=== PATIENT | female | born 1945 | race Caucasian/White ===

== ENCOUNTER 2024-05-01 10:34 | Inpatient (IN) | payer OTHER, MEDICARE ==
[2024-05-01] MEDS ORDERED: ACETAMINOPHEN 325 MG TABLET PO PRN (18:20)
[2024-05-01] MEDS ORDERED: ACETAMINOPHEN 500 MG TAB PO PRN (18:39)
[2024-05-01] MEDS ORDERED: DOCUSATE NA/SENNA CONC 1 TAB PO PRN (18:39)
[2024-05-01] MEDS ORDERED: BISACODYL E.C. 5 MG TAB PO PRN (18:39)
[2024-05-01] MEDS: TRAMADOL HCL 50 MG TAB PO PRN (20:27)
[2024-05-01] MEDS: MELATONIN 3 MG TABLET PO PRN (20:29)
[2024-05-01] MEDS: PRIMIDONE 250 MG TAB PO SCH (20:29)
[2024-05-01] MEDS: NEBIVOLOL HCL 5 MG TAB PO SCH (20:29)
[2024-05-01] MEDS: hydroCHLOROthiazide 25 MG TAB PO SCH (20:30)
[2024-05-01] MEDS: LOSARTAN POTASSIUM 50 MG TABLET PO SCH (20:31)
[2024-05-01] MEDS: MEMANTINE HCL 10 MG TABLET PO SCH (20:31)
[2024-05-01] MEDS: ONDANSETRON 4 MG (ODT) TAB PO PRN (23:24)
[2024-05-01 23:53] LABS: Renal Epithelial <5 /HPF (None Seen); Specific Gravity 1.009 (1.005-1.030); Sqamous Epithelial None Seen /HPF (None Seen); Urine Bacteria None Seen /HPF (<20); Urine Bilirubin NEGATIVE (Negative); Urine Blood Negative (Negative); Urine Clarity Clear (Clear); Urine Color Colorless (Yellow); Urine Culture Reflex Order NOT NEEDED; Urine Glucose NEGATIVE (Negative); Urine Ketones NEGATIVE (Negative); Urine Micro Reflex YN NO BILL MICROSCOPIC; Urine Nitrite NEGATIVE (Negative); Urine Protein NEGATIVE (Negative); Urine RBC <5 /HPF (None Seen); Urine Urobilinogen Normal (Normal); Urine WBC <5 /HPF (<5)
[2024-05-02] MEDS: BISACODYL 10 MG RECTAL SUPP PR PRN (04:11)
[2024-05-02] MEDS: PANTOPRAZOLE 40MG TABLET PO SCH (07:10)
[2024-05-02] MEDS: NIFEDIPINE XL 30 MG TABLET PO SCH (07:13)
[2024-05-02] MEDS ORDERED: APIXABAN 2.5 MG TABLET PO SCH (08:00)
[2024-05-02] MEDS ORDERED: LOSARTAN POTASSIUM 50 MG TABLET PO SCH (08:00)
[2024-05-02] MEDS ORDERED: hydroCHLOROthiazide 25 MG TAB PO SCH (08:00)
[2024-05-02] MEDS ORDERED: NIFEDIPINE XL 30 MG TABLET PO SCH (08:00)
[2024-05-02] MEDS ORDERED: NEBIVOLOL HCL 5 MG TAB PO SCH (08:00)
[2024-05-02 08:11] LABS: Absolute Basophils 0.1 K/uL (0-0.5); Absolute Eosinophils 0.1 K/uL (0-0.5); Absolute Lymphocytes (CBC) 0.9 K/uL (0.7-4.9); Absolute Neutrophil 5.6 K/uL (1.8-8.0); Basophils % 0.8 % (0-1.3); Eosinophils % 1.2 % (0-4.4); Hematocrit 38.8 % (36.0-45.0); Hemoglobin 13.1 g/dL (12.0-15.0); Lymphocytes % 12.1 % (15.3-44.8); MCH 30.5 pg (27.0-35.0); MCHC 33.8 g/dL (32.0-36.0); MPV 8.3 fL (7.6-11.3); Monocytes % 12.8 % (3.3-12.3); Neutrophils % 73.1 % (41.7-73.7); Nucleated Red Blood Cells % 0.1 % (0-0); Platelets 293 thou/uL (152-406); RBC Red Blood Cell Count 4.31 M/uL (3.86-4.86); Red Cell Distribution Width 14.4 % (12.1-15.2)
[2024-05-02 08:27] LABS: Albumin 2.8 g/dL (3.4-5.0); Anion Gap 8.8 mEq/L (5.0-15.0); Magnesium 2.1 mg/dL (1.6-2.4); Potassium 3.8 mEq/L (3.5-5.1); Prealbumin 17.3 mg/dL (20-40)
[2024-05-02] MEDS: ASPIRIN 81 MG CHEWABLE TABLET PO SCH (08:50)
[2024-05-02] MEDS: TAMSULOSIN 0.4 MG SR CAP PO SCH (08:51)
[2024-05-02] MEDS: APIXABAN 2.5 MG TABLET PO SCH (08:51)
[2024-05-02] MEDS: ANASTROZOLE 1 MG TAB PO SCH (10:07)
[2024-05-02] MEDS: HYDROCODONE/APAP 5/325 MG TAB PO PRN (10:12)
[2024-05-02] MEDS: GABAPENTIN 100 MG CAP PO SCH (20:30)
--- NOTE | 2024-05-02 21:42 | HP ---
Date of Admission: 05/01/2024 Time Of Service: 1 p.m. Chief Complaint: "I had lots of back pain and mass on my spinal cord." History Of Present Illness: Ms. Lopez is a 79-year-old patient with history of breast cancer, st atus post treatment at [facility], essential tremor, hypertension, who came to the emergency room at [facility] with severe worsening back pain. She had been managing the pain at home with medications, but over several days, pain became unbearable. CT scan of the back showed a lytic lesion at T10, it is e xpanding into the spinal canal, likely compressing the spinal cord. She was managed with hydrocodone and instructed to follow up with her oncologist. She was later seen at [facility] for intractab le pain. Again, the imaging showed neoplastic involvement of T10, likely reflecting metastatic poten tial breast cancer to that region. The study also identified extension posteriorly, but there was no high-grade central spinal stenosis or neural foraminal narrowing. There was a pathologic fracture p resent along the posterior third of the vertebral body, but no significant loss of height. She was t ransferred for neurosurgical higher level of care at [facility]. She, however, at [facility] had initially denied issues of bowel and bladder incontinence, but subsequently had loss of s ensation in the perineal area and difficulty maintaining bowel and bladder control. A Lopez catheter was in place and then since remained so. Pain as noted goes up to 10/10 and she had received morphi ne along with [place]. Neurosurgery saw the patient and felt that surgical intervention was not recomm ended. They recommended the patient followup with her oncologist, Dr. Oliveros, and possibly may have CT -guided biopsy. She did have that biopsy on 04/28 and the results are pending. She was placed on Fl omax for urinary retention. The patient did say that when she was unable to urinate, a straight cath eter would find a full bladder, but she did not have a sensation that she was needing to go. She did continue primidone for her comorbid essential tremor and been put on Flomax again for the urinary re tention. For cognitive impairment, she was on memantine. Hypertension, her hydrochlorothiazide, los marilyn, and Bystolic were continued. As a result of her severe decline in ordinary mobility transfers due to severe pain, she required minimum assist for bed mobilization transfers, ambulation just a fe w feet around 3 feet, and required significant help to get to the edge of the bed. She was therefore felt to be an appropriate candidate for aggressive inpatient rehabilitation where she can have her p ain medications adjusted. She can have bowel and bladder training and we will consider evaluation fo r of course urinary tract infection and antibiotics. Now she is therefore admitted to the inpatient rehabilitation unit for physical, occupational, and if need be speech therapy. Past Medical History: Breast cancer with treatment with anastrozole, hypertension, benign essential tremor, urinary retention, severe spinal pain. Allergies: PIROXICAM AND SULFAMETHOXAZOLE. Medications: Tylenol Extra Strength 500 mg every 4 hours, [place] 5/325 every 6 hours, Maalox 30 mg ev niyah 6 hours as needed, anastrozole 1 mg daily, Eliquis 2.5 mg twice daily for DVT prophylaxis, aspiri n 81 mg daily, Dulcolax 10 mg per rectum as needed for constipation, gabapentin 100 mg twice daily, H ydroDIURIL 12.5 mg twice daily, losartan 100 mg daily, melatonin 3 mg at bedtime, Namenda 10 mg twice daily, Bystolic 10 mg at bedtime, Procardia XL 30 mg daily, Zofran 4 mg every 8 hours as needed for nausea, Protonix 40 mg daily, primidone 250 mg twice daily, Senokot-S 2 at bedtime, Flomax 0.4 mg luly ly, tramadol 50 mg every 6 hours as needed. Laboratory Studies: Complete blood count differential is normal except for slightly low lymphocytes at 12.1 and monocytes slightly elevated to 12.8. Her chemistries; sodium 134, potassium 3.8, chlorid e 101, carbon dioxide 28, BUN 30, creatinine 0.96, prealbumin 17.3, albumin 2.8, magnesium 2.1, calci um 9.4, glucose 133. Her urinalysis is completely normal. X-ray/imaging: MRI of the L-spine shows a mass lesion in the vertebral body of T10 involving the lef t pedicle with epidural extension and mild compression fracture. No surgical intervention required b y the surgery. Family History: Noncontributory. Social History: The patient lives with family. Denies alcohol, tobacco, or IV drug use. Review of Systems: She does have marked pain in the back which is mitigated by multiple modalities including the neuromo dulator, the [place], the tramadol and Tylenol. If need be, muscle spasms may be added. It should be noted that her ex- was still very involved with her, was at the bedside and had many questions asked and answered. Current Level Of Functioning: For eating, setup assistance. Oral hygiene, supervision. Toileting, moderate assistance. Showering, maximum assistance. Upper body dressing, moderate assistance. Lowe r body dressing, maximum assistance. Donning and doffing footwear, maximum assistance. Rolling left -to-right and qtrxx-pw-jekl and going from a kxx-ct-xwbed position, moderate assistance. Moderate as sistance for sitting and sliding on bed. For transfer from bed to chair to wheelchair, moderate assi stance required. Toilet transfers, moderate assistance. Gait, moderate assistance to ambulate 3 fee t with a rolling walker. Physical Examination: Vital Signs: Blood pressure 112/65, pulse 68, respiratory rate 16, temperature 97.2, oxygen saturati on 91% to 94% on room air. General: Ms. Lopez again is lying in bed, currently mild to moderate pain, which is improving af ter pain medications. HEENT: She does appear normocephalic, atraumatic. Sclerae are anicteric. Oropharynx moist. Neck: Supple. Chest: Clear. Heart: Regular. Extremities: Show no significant clubbing, cyanosis, or edema. Neuro: In terms of her neurological examination, no cranial nerve deficits. Upper extremity, no mot or deficits. She does have some significant pain in the back, where she has the lytic lesion at T10 vertebrae. She is able to move the legs equally well, at least 4/5 strength proximally and distally. No significant sensory loss. No sensory level identified. There are symmetric reflexes seen. Rehab And Medical Assessment And Plan: Ms. Lopez is a 79-year-old patient, admitted to the [facility] rehabilitation unit with impairment category 05, spinal cord dysfunction, nontraumatic. Her [facility] group code is 04.130, other, nontraumatic spinal cord dysfunction. Her etiologic diagnosis i s a lytic lesion at T10 extending into the spinal canal. Her additional comorbidities are the breast cancer, constipation, decreased mobility, decreased physical functioning, hyponatremia, pain, urinar y retention, essential hypertension. She also has benign essential tremor. Plan: 1.She will have physical, occupational, and speech therapy for 3.5 hours, 5 of 7 days. 2.Continue with management of her hypertension with Bystolic, nifedipine, Cozaar, and HydroDIURIL. We will hold medications for systolic blood pressure is less than 120. 3.We will continue with Eliquis for DVT prophylaxis. Continue with aspirin 81 mg daily for stroke r isk reduction. Continue with [place] 5/325, extra-strength Tylenol, and tramadol alternating for sever e pain. 4.For her urinary retention likely due to cord lesion, continue Flomax 0.4 mg daily for stool soften ing. Continue Senokot-S 2 tablets at bedtime. 5.For her benign essential tremor, Mysoline 250 mg twice daily. For nausea, Zofran 4 mg every 8 gee rs. For GE reflux, Protonix 40 mg daily. For her memory loss, memantine 10 mg twice daily. For ins omnia, melatonin 3 mg at bedtime. Comorbidities That Are Impacting Rehabilitation: Of course, the biggest issue is the severe back ksenia n and again multiple modalities are used to address that and likely metastatic cancer is an issue and she will follow up with Dr. Oliveros, her oncologist, after leaving for a plan of treatment. She does h ave a supportive ex- who is helpful and the patient is still relying on him. Her lytic lesion at T10 of course is the big issue with pain there. Otherwise, the comorbidities are stably managed. Rehab Specific Plan: Ms. Lopez will have physical, occupational, and speech therapy for 3.5 hour s, 5 of 7 days, to improve her ability to transfer from bed to chair to toilet to shower, to be able to ambulate more than household distances, to go up and down several steps, perhaps 10, and to mobili ze a wheelchair at least 250 feet. In addition, Speech will help with memory information, processing , judgment, safety awareness, physician followup as appropriate after discharge and following instruc tions as appropriate. Ms. Lopez has a good understanding of the process of admission to the inpatient rehabilitation [facility] and how she will benefit from physical, occupational, and if need be speech therapy. She will have 24 hours a day, 7 days a week skilled rehabilitation nursing, daily physician evaluation and ma nagement, and she will have social science manager evaluation and management for discharge planning, home eq uipment, and medication adherence and physician followup. Barriers To Discharge: The patient's lytic lesion is currently not causing her significant spinal st enosis, but she still has the urinary incontinence and may require that to be addressed once the edvin ent is discharged. May consider bladder training if she is able to sense the billow of urine and pot entially may be able to remove the Lopez catheter. If not, we will have to go home with her and fami ly training will be needed for them to manage it. Length Of Stay: About 2 weeks. Disposition: Home with family and home health. Prognosis: Fair. Rehab Specific Goals: 1.Become independent with upper and lower body dressing, donning and doffing footwear. 2.Independently perform all activities of daily living. 3.Independently ambulate 250 feet with a rolling walker. 4.Independently mobilize a wheelchair 250 feet. 5.Independently go up and down 10 steps with bilateral handrails. 6.Independently perform cognitive functioning. The above goals were reviewed with Ms. Lopez and she is in agreement. By signing this document, I acknowledge I personally performed a full physical examination on Ms. Kristina tijerina no later than 24 hours after her admission to the inpatient rehabilitation facility and determ ined that she is able to tolerate the above course of treatment at an intensive level for a reasonabl e period of time. A detailed individualized plan of care for her will be completed by hospital day 4 based on the preadmission screen, history and physical, and therapy evaluations. HANH Voice ID: [id number]
[2024-05-02] MEDS: MAGNES/ALUMIN/SIMET 30ML UCUP PO PRN (22:25)
[2024-05-03] MEDS: PANTOPRAZOLE 40MG TABLET PO SCH (07:19)
[2024-05-03] MEDS ORDERED: SIMETHICONE 80 MG CHEWABLE TAB PO PRN (13:38)
[2024-05-03] MEDS: DOCUSATE NA/SENNA CONC 1 TAB PO SCH (19:57)
[2024-05-03] MEDS: GABAPENTIN 300 MG CAP PO SCH (19:58)
--- NOTE | 2024-05-03 23:25 | PN ---
Date of Progress Note: 05/03/2024 Time Of Service: 1:25 a.m. Subjective: Ms. Lopez is resting in bed. She does report the pain is still significant in the l ower back area where there is a lytic lesion of the T10, likely metastatic cancer. Otherwise, she is doing fairly well with all activities and exercises and no significant difficulties. Review of Systems: Mild myalgias, arthralgias. Some pain in the back. No rash, headache, weight change. No psychiatri c complaints. Physical Examination: Vital Signs: Blood pressure 118/64, pulse 76, respiratory rate 16, temperature 97.1, O2 saturation 9 6%. General: Ms. Lopez is resting comfortably in bed. No acute distress at this point, but with amb ulation significant pain and with returning as well in bed. HEENT: She is otherwise normocephalic, atraumatic. Sclerae anicteric. Oropharynx moist. Neck: Supple. Chest: Clear. Heart: Regular. Extremities: No significant edema, cyanosis, or clubbing noted. Laboratory Studies: Complete blood count with differential essentially normal. Chemistry: Sodium 1 34, potassium 3.8, chloride 101, carbon dioxide 28, BUN 30, creatinine 0.96, prealbumin 17.3, albumin 2.8, magnesium 2.1, calcium 9.4. Urinalysis completely normal. X-ray/imaging: No new x-rays or imaging. Medications: Extra-strength Tylenol 500 mg every 4 hours as needed, [place] 5/325 every 6 hours as nee ded, Mylicon. She did report some gas in the right abdominal region. She has a Gas-X 30 mL daily. She has anastrozole for her cancer 1 mg daily. Eliquis 2.5 mg twice daily for DVT prophylaxis, aspir in 81 mg daily for stroke risk reduction, Dulcolax for constipation, gabapentin 300 mg twice daily, w hich is an increase due to pain as she has described, more pain in the back. HydroDIURIL 12.5 mg twi ce daily, Cozaar 100 mg at bedtime, melatonin 3 mg at bedtime, Namenda 10 mg twice daily for cognitiv e impairment, Bystolic 10 mg at bedtime, Procardia XL 30 mg daily, Zofran 4 mg every 8 hours as neede d for nausea, Protonix for GE reflux, primidone for benign essential tremor, Flomax 0.4 mg daily for urinary retention, tramadol 50 mg every 6 hours as needed for pain. Progress Made With Physical, Occupational, And Speech Therapy: With physical therapy today, she ambu lated with a rolling walker 250 feet and 100 feet with contact guard assistance. She ascended and de scended 15 steps with bilateral handrails with contact guard assistance and propelled a wheelchair 15 0 feet with standby assistance. With her occupational therapy, she was able to don and doff pants an d socks and tried her socks with sock aid and did all that with verbal cues required. With speech, a ble to recall 4/4 unrelated pictures at 5, 15, and 30 minutes. She had improved her problem-solving skills through a sequential task with 4 units of information, after thinking allowed to place them in accurate order. Ms. Lopez is making great progress while she is just in unit with her physical, occupational, and speech therapy. Assessment: Ms. Lopez is a 79-year-old patient in the rehabilitation unit with lytic T10 expandi ng lesion, likely metastatic cancer, who is doing well despite her cancer. She does have issues of i ncontinence of bowel and bladder and will work on bladder training. Comorbid conditions are breast c ancer, constipation, decreased mobility, decreased physical functioning hyponatremia, hypertension, a nd benign essential tremor. Plan: 1.Continue with physical, occupational, and speech therapy for 3.5 hours, 5/7 days. 2.Continue all comorbid condition medications, which have been noted above. 3.We will continue with DVT prophylaxis and Protonix for reflux, simethicone for gas pain, and again adjustment of her gabapentin was made for addressing the pain, which may be up to 10/10 at one point , but currently 2/10. 4.Comorbidities that are impacting rehabilitation, her severe pain is a big factor. Again, pain med ications adjusted. In addition, she is going to follow up with Dr. Oliveros in Oncology to address the mass in her thoracic T10 level. LB/MODL Voice ID: [id number] Report ID: [id number]
[2024-05-04] MEDS: MAGNES/ALUMIN/SIMET 30ML UCUP PO SCH (07:51)
--- NOTE | 2024-05-04 13:35 | P.RH.PN ---
Estimated Length of Stay: 12 Expected Discharge Date: 05/12/24 Discharge Disposition Plan: Home Family Support: Yes Long-Term Goal: Mobility, Transfers, Self Care Vital Signs: Last Vital Signs Temp 97.3 F 05/04/24 08:00 Pulse 58 05/04/24 09:00 Resp 16 05/04/24 12:46 BP 98/54 L 05/04/24 09:00 Pulse Ox 98 05/04/24 12:46 Laboratory: Laboratory Last Values WBC 7.70 thou/uL (4.3-10.9) 05/02/24 07:24 RBC 4.31 M/uL (3.86-4.86) 05/02/24 07:24 Hgb 13.1 g/dL (12.0-15.0) 05/02/24 07: Hct 38.8 % (36.0-45.0) 05/02/24 07:24 MCV 90.0 fL (80-100) 05/02/24 07: MCH 30.5 pg (27.0-35.0) 05/02/24 07:24 MCHC 33.8 g/dL (32.0-36.0) 05/02/24 07: RDW 14.4 % (12.1-15.2) 05/02/24 07: Plt Count 293 thou/uL (152-406) 05/02/24 07:24 MPV 8.3 fL (7.6-11.3) 05/02/24 07: Neutrophils % 73.1 % (41.7-73.7) 05/02/24 07: Lymphocytes % 12.1 % (15.3-44.8) L 05/02/24 07:24 Monocytes % 12.8 % (3.3-12.3) H 05/02/24: Eosinophils % 1.2 % (0-4.4) 05/02/24: Basophils % 0.8 % (0-1.3) 05/02/24 07: Absolute Neutrophils 5.6 K/uL (1.8-8.0) 05/02/24 07: Absolute Lymphocytes 0.9 K/uL (0.7-4.9) 05/02/24: Absolute Monocytes 1.0 K/uL (0.1-1.3) 05/02/24 07:24 Absolute Eosinophils 0.1 K/uL (0-0.5) 05/02/24 07:24 Absolute Basophils 0.1 K/uL (0-0.5) 05/02/24 07:24 Sodium 134 mEq/L (136-145) L 05/02/24 07:24 Potassium 3.8 mEq/L (3.5-5.1) 05/02/24 07:24 Chloride 101 mEq/L (98-107) 05/02/24 07:24 Carbon Dioxide 28 mEq/L (21-32) 05/02/24 07:24 Anion Gap 8.8 mEq/L (5.0-15.0) 05/02/24 07:24 BUN 30 mg/dL (7-18) H 05/02/24 07:24 Creatinine 0.96 mg/dL (0.55-1.02) 05/02/24 07:24 Est GFR (CKD-EPI) 60 ml/min (=/>90) L 05/02/24 07:24 Glucose 133 mg/dL (74-106) H 05/02/24 07:24 Calcium 9.4 mg/dL (8.5-10.1) 05/02/24 07:24 Magnesium 2.1 mg/dL (1.6-2.4) 05/02/24 07:24 Albumin 2.8 g/dL (3.4-5.0) L 05/02/24 07:24 Prealbumin 17.3 mg/dL (20-40) L 05/02/24 07:24 Urine Color Colorless (Yellow) 05/01/24 23:25 Urine Clarity Clear (Clear) 05/01/24 23:25 Urine pH 6.0 (5.0-7.0) 05/01/24 23:25 Ur Specific Sumner 1.009 (1.005-1.030) 05/01/24 23:25 Glucose (UA)(Auto) Negative (Negative) 05/01/24 23:25 Urine Ketones Negative (Negative) 05/01/24 23:25 Urine Blood Negative (Negative) 05/01/24 23:25 Urine Nitrite Negative (Negative) 05/01/24 23: Urine Bilirubin Negative (Negative) 05/01/24 23:25 Urine Urobilinogen Normal (Normal) 05/01/24 23:25 Ur Leukocyte Esterase Negative Geno/uL (Negative) 05/01/24 23:25 Urine RBC <5 /HPF (None Seen) 05/01/24 23:25 Urine WBC <5 /HPF (<5) 05/01/24 23:25 Ur Squamous Epith Cells None seen /HPF (None Seen) 05/01/24 23:25 U Non-Squamous Epi Cells <5 /HPF (None Seen) 05/01/24 23:25 Ur Renal Epithelial Cell <5 /HPF (None Seen) 05/01/24 23:25 Urine Bacteria None seen /HPF (<20) 05/01/24 23:25 Urine Culture Reflexed Not needed 05/01/24 23:25 Urine Total Protein Negative (Negative) 05/01/24 23:25 Weight: 175 lb Wound Present: No Closed Surgical Incision Present: No Negative Pressure Wound Therapy Present: No Physician Update: Labs reviewed and are stable. Pain is 3/10 at most. Barriers include poor endurance and mild pain. Walking well with physical therapy. BIMS 14, SLUMS 25. Good cognitive skills. Met all short term PT goals. RW 250', 15 steps, WC 250' all with SBA. Had one episode of loss of balance with occupational therapy. Comment: red spot at the back Summary: Patient's care plan and intermediate project manager goals have been reviewed and revised as necessary. Please see the Rehabilitation Signature page for all necessary signatures.
[2024-05-05] MEDS: LIDOCAINE 4% PATCH TOP SCH (08:06)
[2024-05-06 21:18] VITALS: BMI 24.8
[2024-05-08 05:36] LABS: Albumin 2.7 g/dL (3.4-5.0); Prealbumin 25.4 mg/dL (20-40)
[2024-05-08 05:40] LABS: Absolute Basophils 0.1 K/uL (0-0.5); Absolute Eosinophils 0.2 K/uL (0-0.5); Absolute Lymphocytes (CBC) 1.5 K/uL (0.7-4.9); Absolute Monocytes 0.9 K/uL (0.1-1.3); Absolute Neutrophil 3.7 K/uL (1.8-8.0); Basophils % 1.2 % (0-1.3); Eosinophils % 2.5 % (0-4.4); Hematocrit 36.9 % (36.0-45.0); Hemoglobin 12.4 g/dL (12.0-15.0); Lymphocytes % 23.7 % (15.3-44.8); MCH 30.2 pg (27.0-35.0); MCHC 33.5 g/dL (32.0-36.0); MPV 7.3 fL (7.6-11.3); Monocytes % 13.9 % (3.3-12.3); Neutrophils % 58.7 % (41.7-73.7); Platelets 269 thou/uL (152-406); Red Cell Distribution Width 14.1 % (12.1-15.2)
--- NOTE | 2024-05-08 23:11 | PN ---
Date of Progress Note: 05/08/2024 Time Of Service: 1:10 p.m. Subjective: Ms. Lopez is resting in bed between therapy sessions. She does report some improvem ent in her mid thoracic back pain, where she has a T10 lytic lesion, likely metastatic breast cancer. The pain did improve somewhat with modalities, which do include patches and neuromodulators and quique cotic medications, which are used sparingly. Objective: She again reports some pain in the back, which she says really lasts perhaps less than a few minutes as she transitions from bed to a chair, turning. When lying in bed, not moving, no signi ficant pain; and as she is up and walking upright, also no significant pain. Pain medications were a djusted. Physical Examination: Vital Signs: Blood pressure 120/70, pulse 71, respiratory rate 17, temperature 97.2, oxygen saturati on 96%. General: Again, Ms. Lopez is resting in bed. HEENT: She is normocephalic, atraumatic. Sclerae anicteric. Oropharynx pink, moist. Neck: Supple. Chest: Clear. Heart: Regular. Extremities: No significant edema, cyanosis, or clubbing. Neurological: She has no focal deficits except some diffuse weakness in the lower extremities. Her biggest limitation is the lytic lesion at T10 producing pain. Laboratory Studies: Complete blood count with differential is essentially normal. Basic metabolic p irene also normal except BUN slightly elevated to 25, but that was decreased from 30. Her prealbumin improved from 17.3 to 25.4. Albumin 2.7. Magnesium 2.0, calcium 9.1. X-ray/imaging: No new x-rays or imaging. Medications: Noted and have been reviewed, and the change was in the gabapentin to go to 600 mg in t he morning and 300 mg at night as pain is most notable during her transfers with therapy, and that brandyn khan was made. Progress Made With Physical, Occupational, And Speech Therapy: With physical therapy today, she perf orms lzvjub-kd-vjx transfers independently. Multiple zxkbk-yn-slgei transfers done independently wit h rolling walker. She was independent covering 400 feet, 250 feet, and 200 feet with a rolling walke r and a Rollator. She ascended and descended 15 steps independently using bilateral handrails. With occupational therapy, independent with bed mobilization, independent with [id number]-[id number] and again 500 feet, ambulating with a Rollator, all independently. Toilet hygiene, independent. Her blood pressu res remain in good range with orthostatics. With speech, she improved her deductive breathing skills in 13/20 opportunities, requiring moderate assistance with several hints of information. Ms. Lopez is making great progress with physical, occupational, and speech therapy. She is still somewhat slightly limited by the severe pain in the lower back. There was discussion that the patie nt will have a followup appointment with Dr. Oliveros in the oncology section to further address the lyti c lesion at the T10 level. Assessment: Ms. Lopez is a 79-year-old patient who had a metastatic lytic lesion at T10 producin g severe pain, which is being mitigated by multiple modalities. She is making excellent progress wit h physical, occupational, and speech therapy. Working on bladder training. Continue with addressing electrolyte issues, hypertension, and her benign essential tremor. She also has decreased mobility and decreased physical functioning. Plan: 1.Continue with physical, occupational, and speech therapy for 3.5 hours, 5 of 7 days. 2.Continue all current medications and again set a followup appointment with Dr. Oliveros in Oncology. Continue with addressing hypertension, hyponatremia, and electrolyte derangements and continue treating her essential tremor. LB/MODL Voice ID: [id number] Report ID: [id number]
[2024-05-09] MEDS: GABAPENTIN 300 MG CAP PO SCH (07:20)
[2024-05-09] MEDS: DULOXETINE 20 MG CAP PO SCH (20:27)
--- NOTE | 2024-05-09 20:38 | PN ---
Date of Progress Note: 05/09/2024 Time Of Service: 1:10 p.m. Subjective: Ms. Lopez is ambulating in the halls. She is doing fairly well. Did mention signif icant pain at the T10 back area where she has a lytic lesion. Despite that, she is ambulating very w ell. Using a rolling walker, gait belt is on and the therapist is just is at her side. Review of Systems: Again, [id number] pain in the mid back, especially when turning, changing positions, and ambu lating. Otherwise, when resting in bed, no significant pain. Physical Examination: Vital Signs: Blood pressure 104/71, pulse 69, respiratory rate 15, temperature 97.3, oxygen saturati on 96%. General: Again, Ms. Lopez is ambulating well. HEENT: She is normocephalic, atraumatic. Sclerae anicteric. Oropharynx pink and moist. Neck: Supple. Chest: Clear. Heart: Regular. Neuro: She has no focal neurological deficits. She has significant pain in the lower back and is im proving again in an excellent fashion in terms of all of her therapies. Laboratory Studies: No new laboratory studies. X-ray/imaging: No new x-rays or imaging. Medications: Her medications have been reviewed and are continued unchanged except she does have now duloxetine 20 mg twice daily, which can help with neuropathic pain along with the gabapentin, which is now 600 mg in the morning and 300 mg at night. All other medications are continued unchanged incl uding Senokot, Flomax, Mylicon. The primidone for essential tremors, Protonix, Zofran melatonin, Nam enda for dementia, Cozaar, lidocaine patch, HydroDIURIL, gabapentin. Again, duloxetine and aspirin. Progress Made With Physical, Occupational, And Speech Therapy: With her physical therapy, multiple s it to stands independently, [id number] transfers done independently. Ambulated 500 feet, another 250 feet twice independently. She ascended and descended 15 steps with bilateral handrails independ ently. With occupational therapy, independent with bed mobilization, [id number]-[id number] transfers again am bulated 250 feet with a rolling walker picking up 10 small objects from the floor with no loss of bal ance. With speech, BIMS score was 15 and SLUMS score 30/30 indicating she is functioning at a normal level. Ms. Lopez has made excellent progress with physical, occupational, and speech therapy. She is re daria for discharge in the morning. She will be followed up by Dr. Oliveros for the lytic lesion in the T1 0 region, likely metastatic cancer, perhaps breast and she will again have treatment plan per Dr. Migel norris. Assessment: Ms. Lopez is a 79-year-old patient with a lytic lesion at T10 vertebrae with signifi cant pain and likely metastatic cancer. She completed inpatient physical therapy, doing well and is ready for discharge and will continue outpatient physical therapy. She has comorbid essential tremor , hypertension, decreased mobility, decreased physical functioning. Plan: 1.Continue physical, occupational, and speech therapy until she is discharged. 2.Continue with her medications as noted in addition to her followup with our oncologist, Dr. Oliveros. DAMON/HARMAN Voice ID: [id number] Report ID: [id number]
[2024-05-10 07:25] VITALS: BP 115/59
[2024-05-10 07:27] VITALS: TEMP 97
== END 2024-05-10 09:57 | disposition home health service (06) | DRG 55 ==
LOC: 5TH 16:10
PROVIDERS: ADMIT Psychiatry & Neurology Neurology with Special Qualifications in Child Neurology; ATTEND Psychiatry & Neurology Neurology with Special Qualifications in Child Neurology
DX: C79.49 Secondary malignant neoplasm of other parts of nervous system (principal); E87.1 Hypo-osmolality and hyponatremia; C50.919 Malignant neoplasm of unspecified site of unspecified female breast; I10 Essential (primary) hypertension; R33.9 Retention of urine, unspecified; G25.0 Essential tremor; K59.00 Constipation, unspecified; R15.9 Full incontinence of feces; R32 Unspecified urinary incontinence
CPT/HCPCS: 36415; 80048; 81001; 82040; 83735; 84134; 85025; 87086; 87088; 92523; 97110; 97116; 97129; 97163; 97165; 97530; 97542; J2001; Q0162